=== PATIENT | female | born 1940 | race Caucasian/White ===

== ENCOUNTER → 2016-11-11 | Outpatient (CLI) | payer MEDICARE ==
[~2016-11-11] MED LIST: ARICEPT 5MG PO; CATAPRES0.2 MG PO; EMLA CREAM TP; FERROUS SU325 MG/TAB PO; FIBERCON PO; FOSAMAX 70MG TA70 MG PO; GLUCOPHAGE1000 MG PO; GLUCOSAMINE 1000 PO; JANUMXR100-1000 PO; JANUVIA 100MG100 MG PO; LASIX 20MG TABL20 MG PO; NAMENDA XR 7 PO; NORVASC 5MG5 MG/TAB PO; OMEGA-3 FISH1000 MG PO; PROBIOTICA100 Milli1 PO; TYLENOL 500MG500 MG PO; VITAMIN D32000 I1 PO
== END ==
LOC: MC.RAD 10:11
DX: Z12.31 Encounter for screening mammogram for malignant neoplasm of breast (principal); N63 Unspecified lump in breast; R92.1 Mammographic calcification found on diagnostic imaging of breast

== ENCOUNTER 2017-01-20 14:45 | Outpatient (CLI) | payer MEDICARE, OTHER ==
[~2017-01-20 14:45] MED LIST changes: -FERROUS SU325 MG/TAB PO; -JANUMXR100-1000 PO; -NAMENDA XR 7 PO; -PROBIOTICA100 Milli1 PO
[2017-01-20 15:10] VITALS: BP 122/45; PULSE 64; TEMP 98.1
[2017-01-20] MEDS ORDERED: FERROUS SU325 MG/TAB PO (16:16)
[2017-01-20] MEDS ORDERED: JANUMXR100-1000 PO (16:17)
[2017-01-20] MEDS ORDERED: NAMENDA XR 7 PO (16:21)
[2017-01-20] MEDS ORDERED: PROBIOTICA100 Milli1 PO (16:24)
== END 2017-01-20 16:25 | disposition home or self-care (01) ==
LOC: EUO 14:45
DX: M81.0 Age-related osteoporosis without current pathological fracture (principal)
CPT/HCPCS: J3489

== ENCOUNTER 2018-10-04 10:26 | Inpatient (IN) | payer MEDICARE ==
[~2018-10-04] VITALS: Ht 157.5 cm; Wt 83.0 kg
[~2018-10-04 10:26] MED LIST changes: +FERROUS SU325 MG/TAB PO; +JANUMXR100-1000 PO; +NAMENDA XR 7 PO; +PROBIOTICA100 Milli1 PO
[2018-10-04 10:52] LABS: BASO % 0.3 % (0.0-2.0); GRAN # 8.1 (1.4-6.5); GRAN % 84.4 % (42.2-75.2); HEMOGLOBIN 11.7 g/dl (12.5-16.0); LYMPH # 0.7 (1.2-3.4); LYMPH % 7.5 % (20.0-51.0); MEAN CELL VOLUME 96 fl (80.0-100.0); MEAN CORPUSCULAR HEMOGLOBIN 32 pg (27.0-31.0); MEAN CORPUSCULAR HGB CONC 33 g/dl (33.0-37.0); MEAN PLATELET VOLUME 9.8 fl (7.4-10.4); MONO # 0.7 (0.1-0.6); MONO % 7.3 % (1.7-9.3); PLATELET COUNT 256 K/mm3 (130-400); RED BLOOD COUNT 3.69 M/mm3 (4.10-5.30)
[2018-10-04 10:55] LABS: HEMATOCRIT 35.3 % (37.0-47.0)
[2018-10-04 11:01] LABS: BILIRUBIN,TOTAL 0.7 mg/dL (0.0-1.0); CALCIUM 9.5 mg/dL (8.4-10.2); CREATININE, serum 1.25 mg/dL (0.52-1.25); POTASSIUM 4.7 mmol/L (3.4-5.0); TOTAL PROTEIN 7.6 gm/dL (6.4-8.2)
[2018-10-04 11:20] LABS: COLLECTION METHOD CATHETER
[2018-10-04 11:35] LABS: MUCOUS Present /lpf; PH 5 (5-8); SQUAMOUS EPITHELIAL 0-2 /hpf; URINE APPEARANCE Hazy; URINE BACTERIA None Seen /hpf; URINE BILIRUBIN Negative (NEGATIVE); URINE BLOOD Negative (NEGATIVE); URINE COLOR Yellow; URINE GLUCOSE Negative (NEGATIVE); URINE KETONE Trace (NEGATIVE); URINE LEUKOCYTE ESTERASE Negative (NEGATIVE); URINE NITRATE Negative (NEGATIVE); URINE PROTEIN(semi-quant) 3+ (NEGATIVE); URINE UROBILINOGEN Negative (NEGATIVE); URINE WBC 0-2 /hpf
[2018-10-04 12:41] LABS: ARTERIAL BLD GAS O2 SATURATION 98.5 % (92-100); ARTERIAL BLOOD GAS BASE EXCESS -3.3 (-2-2); ARTERIAL BLOOD GAS HCO3 20.9 meq/L (22-26); ARTERIAL BLOOD GAS PCO2 34.5 mmHg (35-45)
[2018-10-04 12:43] LABS: ARTERIAL BLOOD GAS PO2 134.1 mmHg (80-100)
[2018-10-04] MEDS ORDERED: PARCOPA 25/101 UDTAB PO (13:28)
[2018-10-04] MEDS ORDERED: CATAPRES 0.1MG0.1 MG (13:29)
[2018-10-04] MEDS ORDERED: VOLTAREN GEL 1%1 TU TP (13:30)
[2018-10-04] MEDS ORDERED: GLUCOTROL 5M5 MG/TAB PO (13:33)
[2018-10-04] MEDS ORDERED: CEPHALEXIN500 M1 PO (13:34)
[2018-10-04] MEDS ORDERED: PRINIVIL40 MG PO (13:35)
[2018-10-04] MEDS ORDERED: IMODIUM 2MG CAPS2 MG PO (13:36)
[2018-10-04] MEDS ORDERED: NAMZARIC1 ECC PO (13:37)
--- NOTE | 2018-10-04 14:10 | NUR ---
Admitted from ED with pneumonia. History of dementia. Family at bedside. Occasional loose non-productive cough. Low grade fever.
[2018-10-04 15:16] VITALS: BP 152/106; PULSE 63; TEMP 99.5
[2018-10-04 15:18] VITALS: BP 170/60; PULSE 53; TEMP 99.5
--- NOTE | 2018-10-04 18:00 | NUR ---
IV antibiotics infused. Resting quietly in bed with family at bedside.
[2018-10-04 19:02] VITALS: BP 158/70; PULSE 56; TEMP 102.2
--- NOTE | 2018-10-04 20:40 | NUR ---
Pt. laying in bed. Pt. is arusable to verbal stimuli. Pt. is alert and comfused. Shift assessment completed at this time. INT to rt. wrist patent. Pt. denies pain or other needs. Call light within reach.
--- NOTE | 2018-10-04 23:30 | NUR ---
Report from [employer] that pt.'s heart rate in the 30's. Pt. assessed, BP normal, heart rate does stay in the 30's-40's range. Dr. Cline notified. No new orders.
[2018-10-04 23:33] VITALS: BP 135/65; PULSE 46; TEMP 100.5
[2018-10-05] VITALS (7 sets, daily range): BP systolic 119–181; BP diastolic 50–67; PULSE 49–71; TEMP 97–101.9
--- NOTE | 2018-10-05 05:59 | NUR ---
Pt. slept off and on through the night. Pt. remains alert and confused. INT to rt. wrist pulled out through the night, new site established to lt. forearm. Pt. denies pain. Pt. did have some nausea this am. IAM Grady notified, new order for zofran given. Pt. denies further needs, call light within reach. Bedalarm on.
[2018-10-05 08:08] LABS: CALCIUM 8.9 mg/dL (8.4-10.2); CREATININE, serum 1.14 mg/dL (0.52-1.25); POTASSIUM 4.4 mmol/L (3.4-5.0)
[2018-10-05 08:29] LABS: BASO % 0.4 % (0.0-2.0); GRAN # 8.6 (1.4-6.5); GRAN % 83.7 % (42.2-75.2); LYMPH # 0.7 (1.2-3.4); LYMPH % 6.3 % (20.0-51.0); MEAN CELL VOLUME 97 fl (80.0-100.0); MEAN CORPUSCULAR HEMOGLOBIN 31 pg (27.0-31.0); MEAN CORPUSCULAR HGB CONC 32 g/dl (33.0-37.0); MEAN PLATELET VOLUME 10.3 fl (7.4-10.4); MONO # 0.9 (0.1-0.6); MONO % 8.6 % (1.7-9.3); PLATELET COUNT 253 K/mm3 (130-400); RED BLOOD COUNT 3.52 M/mm3 (4.10-5.30); REDCELL DISTRIBUTION WIDTH-CV 12.3 % (11.5-14.5)
[2018-10-05 08:54] LABS: HEMATOCRIT 34.1 % (37.0-47.0)
--- NOTE | 2018-10-05 14:29 | NUR ---
First visit from the clinical registered nurse. No needs right now.
--- NOTE | 2018-10-05 15:45 | NUR ---
PATIENT NOTES INCREASE TEMP OF 101 AND IS WARM TO TOUCH. GAVE PRN TYLENOL, TWO TABS. APPLIED COOL CLOTH, BLANKETS REMOVED AND PATIENT RESTING UP IN BED. CHANGED WET BREIF. NO OTHER NEEDS. CALL LIGHT IN REACH.
--- NOTE | 2018-10-05 16:26 | NUR ---
SW met with patient to discuss discharge planning. Patient is confused due to dementia. Patient lives at [facility] and her PCP is Dr Sachin Goodwin. She has a DPOA on the EMR. SW will follow up with daughter to discuss discharge plan further.
--- NOTE | 2018-10-05 19:35 | NUR ---
Patient resting with HOB elevated. Patient alert, but does not answer questions other than shaking head yes or no. Pt denies pain. Respirations even and unlabored. Bilateral bases diminished. Pt is coughing occasionally, but is in no distress. Incontinent with brief. Will continue to monitor.
[2018-10-06 03:18] VITALS: BP 148/67; PULSE 78; TEMP 99.3
--- NOTE | 2018-10-06 06:00 | NUR ---
Pt sleeping, but arousable. No distress noted. Rested periodically throughout the night without any changes to status
[2018-10-06 07:30] LABS: BASO % 0.2 % (0.0-2.0); EOS % 0.1 % (0-4.0); GRAN # 7.8 (1.4-6.5); GRAN % 81.4 % (42.2-75.2); LYMPH # 0.8 (1.2-3.4); LYMPH % 8.1 % (20.0-51.0); MEAN CELL VOLUME 94 fl (80.0-100.0); MEAN CORPUSCULAR HGB CONC 33 g/dl (33.0-37.0); MEAN PLATELET VOLUME 10.6 fl (7.4-10.4); MONO # 0.9 (0.1-0.6); MONO % 9.3 % (1.7-9.3); PLATELET COUNT 240 K/mm3 (130-400); RED BLOOD COUNT 3.16 M/mm3 (4.10-5.30); REDCELL DISTRIBUTION WIDTH-CV 11.7 % (11.5-14.5)
[2018-10-06 07:31] VITALS: BP 186/71; PULSE 67; TEMP 99.3
[2018-10-06 07:34] LABS: HEMATOCRIT 29.6 % (37.0-47.0); HEMOGLOBIN 9.7 g/dl (12.5-16.0); MEAN CORPUSCULAR HEMOGLOBIN 31 pg (27.0-31.0)
[2018-10-06 07:38] LABS: CALCIUM 8.2 mg/dL (8.4-10.2); CREATININE, serum 1.06 mg/dL (0.52-1.25)
[2018-10-06 11:30] VITALS: BP 152/66; PULSE 56; TEMP 99
[2018-10-06 15:46] VITALS: BP 165/65; PULSE 65; TEMP 99.4
[2018-10-06 20:19] VITALS: BP 155/58; BP 185/58; PULSE 61; TEMP 100; TEMP 100.8
--- NOTE | 2018-10-06 22:48 | NUR ---
Assessment completed. Patient is alert & orientated to self, no other sense of orientation at this time. Low grade fever of 100.0 noted, scheduled Tylenol given. Tele maintained. Denies any pain and does not appear to be in any distress. Lungs diminished throughout. Patient has a non-productive cough. Tolerated evening meal with no c/o nausea. Insulin given per orders. Brief on for incontinent voids. Tremor noted to upper extremities. Fall precautions in place. Bed is in a low position with bed alarm on and call light in reach.
[2018-10-07 00:15] VITALS: BP 155/77; PULSE 56; TEMP 99.4
[2018-10-07 03:37] VITALS: BP 140/61; PULSE 51; TEMP 98.2
--- NOTE | 2018-10-07 05:14 | NUR ---
Patient has rested intermittently through the night. VSS, remains on room air. Non-productive cough throughout the night, the cough does get better after receiving prn Robitussin. Incontinent of urine, pericare and new brief provided. Bed remains in a low position with bed alarm on and call light in reach.
--- NOTE | 2018-10-07 07:42 | NUR ---
REPORT FROM TRAM VILLANUEVA. PT RESTING IN BED.
--- NOTE | 2018-10-07 07:45 | NUR ---
REPORT FROM BARI VILLANUEVA.
[2018-10-07 08:13] VITALS: BP 155/58; PULSE 73; TEMP 97.9
--- NOTE | 2018-10-07 09:09 | NUR ---
PT UP TO RECLINER FOR BREAKFAST. AM MEDS GIVEN PER ORDERS. DAUGHTER HERE IN ROOM WITH PATIENT. DENIES NEEDS.
[2018-10-07 11:16] VITALS: BP 145/49; PULSE 55; TEMP 98.4
--- NOTE | 2018-10-07 11:30 | NUR ---
Initial visit; Patient and her daughter Armida thanked Clinical Education Manager for stopping in and offering God's blessings and to keep Myla in her prayers.
--- NOTE | 2018-10-07 15:18 | NUR ---
MARTÍN called [facility] and left message to call about dc. Clinical update faxed to hospital for behavioral medicine. Plan is to dc to [facility] for skilled care.
[2018-10-07 16:26] VITALS: BP 147/58; PULSE 51; TEMP 98.3
--- NOTE | 2018-10-07 19:14 | NUR ---
REPORTTO BARI VILLANUEVA.
[2018-10-07 20:00] VITALS: BP 149/87; PULSE 18; TEMP 98.2
--- NOTE | 2018-10-07 21:30 | NUR ---
Patient sitting up in chair at times of assessment. Patient is A&O to self but no other sense of orientation to situation, time or place. VSS, on room air. Tele maintained. Denies any pain. Incontinent of voids, pericare provided. Up with assist x 1 with walker and gait belt, patient has a steady gait but requires directing of the walker. Fluid restriction enforced and fall precautions maintained.
[2018-10-08 00:04] VITALS: BP 151/86; PULSE 60; TEMP 98.7
[2018-10-08 04:25] VITALS: BP 152/65; PULSE 56; TEMP 98.1
--- NOTE | 2018-10-08 05:45 | NUR ---
Patient has rested intermittently through the night. VSS. Tele maintained. Patient was up with assist x 1 through the night with walker and gait belt to the restroom, patient needed a lot of direction to push the walker and walk at the same time. Continues to be incontinent of urine. Bed is in a low position with bed alarm on and call light in reach.
--- NOTE | 2018-10-08 07:22 | NUR ---
report from Luiza VILLANUEVA.
[2018-10-08 08:55] LABS: BASO % 0.4 % (0.0-2.0); EOS # 0.2 (0.0-0.7); EOS % 2.5 % (0-4.0); GRAN % 75.5 % (42.2-75.2); LYMPH # 0.9 (1.2-3.4); LYMPH % 11.4 % (20.0-51.0); MEAN CELL VOLUME 94 fl (80.0-100.0); MEAN CORPUSCULAR HGB CONC 33 g/dl (33.0-37.0); MEAN PLATELET VOLUME 10.3 fl (7.4-10.4); MONO # 0.7 (0.1-0.6); MONO % 8.9 % (1.7-9.3); PLATELET COUNT 296 K/mm3 (130-400); RED BLOOD COUNT 3.21 M/mm3 (4.10-5.30); REDCELL DISTRIBUTION WIDTH-CV 12.2 % (11.5-14.5)
[2018-10-08 08:57] LABS: HEMATOCRIT 30.3 % (37.0-47.0); HEMOGLOBIN 9.9 g/dl (12.5-16.0); MEAN CORPUSCULAR HEMOGLOBIN 31 pg (27.0-31.0)
[2018-10-08 09:00] LABS: CALCIUM 8.6 mg/dL (8.4-10.2); CREATININE, serum 1.23 mg/dL (0.52-1.25); POTASSIUM 3.4 mmol/L (3.4-5.0)
[2018-10-08] MEDS ORDERED: OMNICEF 300MG300 MG PO (10:00)
--- NOTE | 2018-10-08 10:36 | NUR ---
PT UP TO RECLINER FOR BREAKFAST. OUT TO [facility] FOR THERAPY. PLAN ON DISCHARGE LATER THIS PM.
--- NOTE | 2018-10-08 10:49 | NUR ---
SW met with patient and daughter to present IM and verbally discuss the contents. Patients daughter signed the form for her. Original placed in chart. Patients daughter signed a choice form for [place] as she is going back skilled prior to returning alf care. fireworks assembly supervisor scheduled for 1pm today, 10/08/18.
[2018-10-08 11:32] VITALS: BP 149/51; PULSE 57; TEMP 98.7
[2018-10-08 12:04] VITALS: BP 149/51; PULSE 57; TEMP 98.7
--- NOTE | 2018-10-08 13:41 | NUR ---
report called to [facility]ker [facility]. pt left with transportation at this time. IV to LAC discontinued..
== END 2018-10-08 13:43 | DRG 871 ==
LOC: COL.ER 10:26 → SURG 12:31 → MEDICAL 12:31 → SURG 12:32
PROVIDERS: Nurse Practitioner Family; Nurse Practitioner Primary Care; Physician Assistant; ADMIT Internal Medicine
DX: A41.9 Sepsis, unspecified organism (principal); J18.9 Pneumonia, unspecified organism; G92 Toxic encephalopathy; I50.33 Acute on chronic diastolic (congestive) heart failure; I21.A1 Myocardial infarction type 2; Z66 Do not resuscitate; E11.65 Type 2 diabetes mellitus with hyperglycemia; G20 Parkinson's disease; F02.80 Dementia in other diseases classified elsewhere, unspecified severity, without behavioral disturbance, psychotic disturbance, mood disturbance, and anxiety; E78.5 Hyperlipidemia, unspecified; I16.0 Hypertensive urgency; I11.0 Hypertensive heart disease with heart failure
CPT/HCPCS: 99223-AI; 99232-AI; 99233-AI; 99239; A4216; J0692; J0696; J1644; J1815; J2405; J3370; J7030; J7050

== ENCOUNTER 2019-03-24 12:46 | Emergency (ER) | payer MEDICARE ==
[~2019-03-24 12:46] MED LIST changes: +CATAPRES 0.1MG0.1 MG; +CEPHALEXIN500 M1 PO; +GLUCOTROL 5M5 MG/TAB PO; +IMODIUM 2MG CAPS2 MG PO; +NAMZARIC1 ECC PO; +OMNICEF 300MG300 MG PO; +PARCOPA 25/101 UDTAB PO; +PRINIVIL40 MG PO; +VOLTAREN GEL 1%1 TU TP
[2019-03-24 13:20] LABS: BASO % 0.2 % (0.0-2.0); GRAN % 81.7 % (42.2-75.2); HEMOGLOBIN 11.5 g/dl (12.5-16.0); LYMPH # 1.1 (1.2-3.4); LYMPH % 10.4 % (20.0-51.0); MEAN CELL VOLUME 96 fl (80.0-100.0); MEAN CORPUSCULAR HEMOGLOBIN 31 pg (27.0-31.0); MEAN CORPUSCULAR HGB CONC 33 g/dl (33.0-37.0); MEAN PLATELET VOLUME 9.7 fl (7.4-10.4); MONO # 0.7 (0.1-0.6); MONO % 6.7 % (1.7-9.3); PLATELET COUNT 381 K/mm3 (130-400); RED BLOOD COUNT 3.67 M/mm3 (4.10-5.30); REDCELL DISTRIBUTION WIDTH-CV 13.1 % (11.5-14.5)
[2019-03-24 13:28] LABS: HEMATOCRIT 35.3 % (37.0-47.0)
[2019-03-24 13:29] LABS: ALANINE AMINOTRANSFERASE < 6 U/L (9-52); ALBUMIN 4.1 gm/dL (3.5-5.0); ALKALINE PHOSPHATASE 78 U/L (50-136); ANION GAP 16 mmol/L (7-16); AST,SGOT 22 U/L (15-37); BILIRUBIN,TOTAL 0.5 mg/dL (0.0-1.0); BLOOD UREA NITROGEN 39 mg/dL (7-17); CALCIUM 9.6 mg/dL (8.4-10.2); CARBON DIOXIDE 20 mmol/L (22-30); CHLORIDE 100 mmol/L (98-107); CREATININE, serum 1.73 (0.52-1.25); GLUCOSE 260 mg/dL (74-106); POTASSIUM 4.4 mmol/L (3.4-5.0); SODIUM 136 mmol/L (137-145); TOTAL PROTEIN 7.7 gm/dL (6.4-8.2)
[2019-03-24 13:44] LABS: COLLECTION METHOD CATHETER
[2019-03-24 14:01] LABS: MUCOUS Present /lpf; PH 5 (5-8); SQUAMOUS EPITHELIAL None Seen /hpf; URINE APPEARANCE Cloudy; URINE BACTERIA Many /hpf; URINE BILIRUBIN Negative (NEGATIVE); URINE BLOOD Negative (NEGATIVE); URINE COLOR Yellow; URINE GLUCOSE Negative (NEGATIVE); URINE KETONE Trace (NEGATIVE); URINE LEUKOCYTE ESTERASE 1+ (NEGATIVE); URINE NITRATE Negative (NEGATIVE); URINE PROTEIN(semi-quant) 2+ (NEGATIVE); URINE UROBILINOGEN Negative (NEGATIVE)
[2019-03-24] MEDS ORDERED: MACROBID 1100 MG/CAP PO (15:48)
[2019-03-24 15:50] VITALS: BP 123/82; PULSE 72; TEMP 98.3
[2019-03-24] MEDS ORDERED: CIPRO 250MG TA250 MG PO (17:19)
== END 2019-03-24 16:00 | disposition home or self-care (01) ==
LOC: COL.ER 12:46
PROVIDERS: Emergency Medicine
DX: N39.0 Urinary tract infection, site not specified (principal); G20 Parkinson's disease; Z79.84 Long term (current) use of oral hypoglycemic drugs
CPT/HCPCS: J7030